=== PATIENT | male | born 1970 | race Caucasian/White ===

== ENCOUNTER 2019-06-09 07:01 | Day surgery (SDC) | payer OTHER ==
[~2019-06-09] VITALS: Ht 182.9 cm; Wt 85.0 kg
[~2019-06-09 07:01] MED LIST: LIDOCAINE 1% PF 2 ML VIAL. ID PRN; ONDANSETRON PF 4 MG/2 ML VIAL. IV PRN; PROCHLORPERAZINE 10 MG/2 ML VIAL. IV PRN; fentaNYL PF VIAL 100 MCG/2 ML VIAL IV PRN
[2019-06-09] MEDS ORDERED: BUPIVACAINE-EPI 0.5%-1:200000 MPF 30 ML VIAL. ONE (07:10)
[2019-06-09] MEDS ORDERED: AMLO10TA8 PO (07:13)
[2019-06-09] MEDS ORDERED: LISI-130 PO (07:13)
[2019-06-09] MEDS ORDERED: HYDR50TA PO (07:13)
[2019-06-09] MEDS ORDERED: OMEP20CA16 PO (07:13)
[2019-06-09] MEDS: IV RINGERS,LACTATED 1000ML 1,000 ML IV SCH ×2 (07:39→09:50)
[2019-06-09] MEDS ORDERED: fentaNYL PF VIAL 250 MCG/5 ML VIAL ONE (07:45)
[2019-06-09] MEDS ORDERED: ROCURONIUM 50 MG/5 ML VIAL. ONE (07:45)
--- NOTE | 2019-06-09 08:04 | PDOC1 ---
History and Physical Date of Admission Date of Admission DATE: 06/09/19 TIME: 07:58 Identification/Chief Complaint Chief Complaint right inguinal fullness, pain Source Source: Chart review, Patient History of Present Illness History of Present Illness Chad is a 48 yo inmate who has had previous inguinal hernia surgeries. He comes in with a right sided recurrence Past Medical History Cardiovascular: HTN Pulmonary: No pertinent hx GI: GERD Infectious disease: Other (Hep C) Past Surgical History Past Surgical History: Cholecystectomy, Hernia Repair Family History Family History: No Significant Social History Smoke: No ALCOHOL: none Drugs: None Current Medications Current Medications Current Medications Ondansetron HCl (Zofran) 4 mg PRN Q6HRS PRN IV NAUSEA/VOMITING; Start 06/09/19 at 07:00; Stop 06/10/19 at 06:59 Fentanyl Citrate (Fentanyl 2ml Vial) 25 mcg PRN Q5MIN PRN IV MILD PAIN 1-3; Start 06/09/19 at 07:00; Stop 06/10/19 at 06:59 Fentanyl Citrate (Fentanyl 2ml Vial) 50 mcg PRN Q5MIN PRN IV MODERATE TO SEVERE PAIN; Start 06/09/19 at 07:00; Stop 06/10/19 at 06:59 Ringer's Solution 1,000 ml @ 30 mls/hr Q24H IV Last administered on 06/09/19at 07:39; Start 06/09/19 at 07:00; Stop 06/09/19 at 18:59 Lidocaine HCl (Xylocaine-Mpf 1% 2ml Vial) 2 ml PRN 1X PRN ID PRIOR TO IV START; Start 06/09/19 at 07:00; Stop 06/10/19 at 06:59 Prochlorperazine Edisylate (Compazine) 5 mg PACU PRN PRN IV NAUSEA, MRX1; Start 06/09/19 at 07:00; Stop 06/10/19 at 06:59 Cefazolin Sodium/ Dextrose 50 ml @ 100 mls/hr 1X ONCE IV ; Start 06/09/19 at 06:00; Stop 06/09/19 at 06:29; Status DC Bupivacaine HCl/ Epinephrine Bitart (Sensorcain-Epi 0.5%-1:955655 Mpf) 30 ml STK-MED ONCE .ROUTE ; Start 06/09/19 at 07:10; Stop 06/09/19 at 07:11; Status DC Rocuronium [place] (Zemuron) 50 mg STK-MED ONCE .ROUTE ; Start 06/09/19 at 07:45; Stop 06/09/19 at 07:45; Status DC Fentanyl Citrate (Fentanyl 5ml Vial) 250 mcg STK-MED ONCE .ROUTE ; Start 06/09/19 at 07:45; Stop 06/09/19 at 07:46; Status DC Active Scripts Active Reported Omeprazole 20 Mg Capsule.dr 20 Mg PO DAILY Lisinopril 40 Mg Tablet 40 Mg PO DAILY Hydroxyzine Hcl 50 Mg Tablet 50 Mg PO HS Amlodipine Besylate 10 Mg Tablet 10 Mg PO DAILY Allergies Allergies: Coded Allergies: morphine (Verified Allergy, Intermediate, Itching, 06/09/19) ROS Review of System negative with exception of present complaints Physical Exam General: Alert, No acute distress HEENT: Atraumatic, EOMI Lungs: Normal air movement Heart: RRR Abdomen: Soft Male Genitals Exam: hernia mass (right) Vitals Vitals Vital Signs Date Time Temp Pulse Resp B/P (MAP) Pulse Ox O2 Delivery O2 Flow Rate FiO2 06/09/19 07:17 98.7 79 18 149/90 97 Room Air 98.7 VTE Prophylaxis Ordered VTE Prophylaxis Devices: Yes VTE Pharmacological Prophylaxi: No Assessment/Plan Assessment/Plan recurrent right inguinal hernia Hemodynamically unstable?: No Respiratory Distress?: No Serious Diagnosis?: No Is patient at high risk?: No CITLALI MOORE MD Jun 09, 2019 08:04
[2019-06-09] MEDS ORDERED: LIDOCAINE 2% PF 5 ML VIAL. ONE (08:24)
[2019-06-09] MEDS ORDERED: ONDANSETRON PF 4 MG/2 ML VIAL. ONE (08:24)
[2019-06-09] MEDS ORDERED: PROPOFOL 20 ML IV ONE (08:24)
[2019-06-09] MEDS ORDERED: DEXAMETHASONE SOD PHOS 4 MG/ML VIAL ONE (08:24)
[2019-06-09] MEDS ORDERED: SEVOFLURANE 61 TO 120 MINUTES. IH ONE (08:26)
[2019-06-09] MEDS ORDERED: PHENYLEPHRINE in 0.9% NACL PF 1 MG/10 ML SYRINGE. IV ONE (08:26)
[2019-06-09] MEDS ORDERED: GLYCOPYRROLATE 1 MG/5 ML VIAL. ONE (08:29)
[2019-06-09] MEDS ORDERED: NEOSTIGMINE METHYLSULFATE 5 MG/5 ML SYRINGE. ONE (08:29)
--- NOTE | 2019-06-09 09:11 | PDOC ---
BRIEF OPERATIVE NOTE Date: Jun 09, 2019 Pre-Op Diagnosis recurrent RIH Post-Op Diagnosis right inguinal hernia Procedure Performed repair with mesh Surgeon Jun Anesthesia Type: General Blood Loss 10cc IV Fluid 900cc Specimens Obtained right hydrocele Findings hydrocele, indirect hernia Complications none Operative Note Wk # [id number] CITLALI MOORE MD Jun 09, 2019 09:11
--- NOTE | 2019-06-09 09:18 | OP ---
DATE OF SURGERY: 06/09/2019 PREOPERATIVE DIAGNOSIS: Recurrent right inguinal hernia. POSTOPERATIVE DIAGNOSIS: Right inguinal hernia with hydrocele. PROCEDURE: Repair with mesh and hydrocelectomy. SURGEON: Jd Moore MD ANESTHESIA: General endotracheal. BLOOD LOSS: 10. INTRAVENOUS FLUIDS: 900. DESCRIPTION OF PROCEDURE: The patient brought to the operating suite, given a general endotracheal anesthetic and the right inguinal area was prepped and draped in usual sterile fashion. A 0.5% Marcaine with epinephrine was used to infiltrate the skin and subcutaneous tissue along the incision line. Incision made and dissection carried down to the external oblique fascia. Bleeders were cauterized or tied as identified. The fascia was opened in the direction of its fibers, extended through the external ring. Cord was stripped off the pubis. Denny placed around it and dissection carried back to the internal ring. The large noncommunicating hydrocele was delivered out of the scrotum into the wound and the neck of the process was closed with a stick tie of 0 Vicryl suture. The sac and hydrocele excised. The stump retracted spontaneously into the abdominal cavity and was held in reduction with a small plug of Phasix mesh, tacked with 2-0 PDS, taking care to avoid injury to adjacent vessels. A keyhole patch was fashioned and placed over the floor of the canal. The slit closed with a single 2-0 PDS stitch and the area checked for adequate hemostasis. When present, adequate correct sponge count was obtained, the cord was returned to its normal anatomical position and the external oblique fascia closed over a running fashion with 3-0 Vicryl. SubQ approximated with 3-0 Vicryl, skin closed with a subcuticular 4-0 Monocryl. Steri-Strips and sterile dressing applied. Prior to emergence from anesthesia, digital rectal exam failed to reveal evidence of prostatic enlargement or nodularity. The patient was awakened from his anesthetic and taken to the recovery room in satisfactory condition. JD MOORE MD DR: FRANCESCA/mario JOB#: [id number] / [id number]
--- NOTE | 2019-06-09 09:31 | DISCH ---
DISCHARGE INSTRUCTIONS Condition on Discharge Condition on Discharge: Stable Activity After Discharge Activity Instructions for Disc: Activity as tolerated, Avoid exertion Lifting Instructions after Dis: No heavy lifting Diet after Discharge Diet after Discharge: Regular Wound Incision Care Wound/Incision Care: Ice to area for comfort Other wound/incision instructi: ben wright Sunday CITLALI MOORE MD Jun 09, 2019 09:31
[2019-06-09] MEDS ORDERED: fentaNYL PF VIAL 100 MCG/2 ML VIAL ONE (09:42)
[2019-06-09] MEDS ORDERED: HYDROcodone/APAP 5/325MG 1 TAB TABLET PO ONE (09:45)
[2019-06-09 10:06] VITALS: BP 130/85
--- NOTE | 2019-06-10 17:07 | PATHOLOGY ---
[facility] Accession Number: [id number] . 01 Material submitted: . testis - HYDROCELE . 01 Clinical history: . Recurrent right inguinal hernia . 02 Diagnosis: Segment of mesothelial-lined fibromembranous and smooth muscle tissue, recurrent right inguinal hernia repair: - Hydrocele with focal reactive mesothelial hyperplasia and chronic inflammation. . (JPM:mml; 06/10/2019) [facility] 06/10/2019 1556 Local . 02 Electronically signed: . Calos Dominguez MD, Pathologist NPI- [id number] . 01 Gross description: . The specimen is received in formalin, labeled "[place], Chad, hydrocele" and consists of an intact cystic segment of rubbery pink-newell tissue measuring 10.5 x 6.5 x 2.1 cm. The specimen contains clear yellow viscous fluid. Opening reveals 2 different locules showing smooth pink-newell cyst linings and no excrescences. Helmet Coverer sections are submitted in A1-A2. (SDY; 06/09/2019) SYU/SYU 06/09/2019 1602 Local . 02 Pathologist provided ICD-10: N43.3 . 02 CPT . 223535 Specimen Comment: A courtesy copy of this report has been sent to [phone] Specimen Comment: Report sent to Performed at: 01 [facility] [address], [place] [id number] MD Carlitos Madrid MD Phone: [phone] Performed at: 02 [facility] [address], [place] [id number] MD Calos Dominguez MD Phone: [phone]
== END 2019-06-09 10:30 | disposition home or self-care (01) ==
LOC: SURG 07:01
PROVIDERS: ATTEND Surgery
DX: K40.91 Unilateral inguinal hernia, without obstruction or gangrene, recurrent (principal); N43.3 Hydrocele, unspecified; I10 Essential (primary) hypertension; K21.9 Gastro-esophageal reflux disease without esophagitis; K75.9 Inflammatory liver disease, unspecified; Z98.890 Other specified postprocedural states; Z79.899 Other long term (current) drug therapy; Z79.2 Long term (current) use of antibiotics; Z90.49 Acquired absence of other specified parts of digestive tract; Z82.49 Family history of ischemic heart disease and other diseases of the circulatory system; Z87.891 Personal history of nicotine dependence; Z88.8 Allergy status to other drugs, medicaments and biological substances
CPT/HCPCS: 88302; A7015; C1781; J0696; J1100; J2001; J2370; J2405; J2704; J2710; J3010; J3490; J7120